=== PATIENT | male | born 1995 | race Caucasian/White ===

== ENCOUNTER 2016-07-27 09:29 | Emergency (ER) | payer OTHER ==
--- NOTE | 2016-07-27 11:24 | UC ---
Martinez aCstillo Salem, scribed for [facility]- [facility] MD on 07/27/16 at 1108 . Back Pain HPI - HPI Summary HPI Summary: HPI: Patient is a 20 y/o male who presents to with back pain since yesterday afternoon (1729). Pt reports he fell on a wood step and landed on lower back. He has been experiencing lower back pain and coccydynia since. He states that he can ambulate, but pain is aggravated with bending forward or with straightening back. He denies any changes with urinating or BM since onset. He also denies tingling in the legs. 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 PMHx: PNA as a child, allergic reaction to PPD shot, torn ACL, and broken fingers. FHx: none. note: VSS, afebrile, post ox:100%, 9/10 low back sacral pain, occasional EtOH, nonsmoker, Hx of asthma, on no prespcription medication. [facility] Ref: [id number] Nurses note: Slipped on wet steps yesterday, fell and landed on lower back and tailbone on the wooden steps. Painful, increased pain with movement. Left hand has been intermittently becoming numb, very rarely the right hand. Has been happening for the last week. - History of Current Complaint Chief Complaint: UCBackPain Stated Complaint: BACK INJURY Time Seen by Provider: 07/27/16 10:48 Hx Obtained From: Patient Onset/Duration: Gradual Onset, Lasting Hours Timing: Constant Severity Initially: Moderate Severity Currently: Moderate Aggravating: Bending - - forward and straightening back. Associated Signs And Symptoms: Negative: Tingling - Allergies/Home Medications Allergies/Adverse Reactions: Allergies Allergy/AdvReac Type Severity Reaction Status Date / Time PPD Allergy Severe SKIN Uncoded 01/25/16 15:24 REACTION Home Medications: Home Medications Ibuprofen TAB* [Advil TAB*] 400 mg PO PRN 07/27/16 [History] PMH/Surg Hx/FS Hx/Imm Hx Endocrine History Of: Denies: Diabetes, Thyroid Disease Cardiovascular History Of: Denies: Cardiac Disorders, Hypertension Respiratory History Of: Reports: Asthma Denies: COPD GI/ History Of: Denies: Ulcer - Surgical History Surgical History: Yes Surgery Procedure, Year, and Place: T&A, PIECE OF SKIN REMOVED FROM UNDER THE TONGUE. - Family History Known Family History: Negative: Cardiac Disease, Hypertension, Diabetes - Social History Alcohol Use: Weekly Alcohol Amount: 1-2 times per week Substance Use Type: None Smoking Status (MU): Never Smoked Tobacco Type: Smokeless Tobacco Amount Used/How Often: 1/2 a tin Review of Systems Constitutional: Negative Musculoskeletal: Other: - No tingling. Numbness in fingers. Neurological: Other - No tingling. All Other Systems Reviewed And Are Negative: Yes Physical Exam Triage Information Reviewed: Yes Appearance: Well-Appearing, No Pain Distress, Well-Nourished Vital Signs: Initial Vital Signs Temp 97.8 F 07/27/16 09:39 Pulse 76 07/27/16 09:39 Resp 18 07/27/16 09:39 BP 122/88 07/27/16 09:39 Pulse Ox 100 07/27/16 09:39 Vital Signs Reviewed: Yes Eyes: Positive: Conjunctiva Clear ENT: Positive: Hearing grossly normal, Pharynx normal, TMs normal. Negative: Muffled/hoarse voice Neck: Positive: Supple, No Lymphadenopathy Respiratory: Positive: Chest non-tender, Lungs clear, Normal breath sounds, No respiratory distress Cardiovascular: Positive: RRR, No Murmur Abdomen Description: Positive: Nontender, No Organomegaly, Soft Bowel Sounds: Positive: Present Musculoskeletal: Positive: Strength Intact, Other: - GUZMAN. TINELS SIGN IN LEFT WRIST. LOWER BACK: MILD TENDERNESS OVER BONES AND MUSCLE REGION. Neurological: Positive: Alert Psychological: Positive: Age Appropriate Behavior Back Pain Course/Dx - Course Course Of Treatment: MDM: Discussed condition with pt, contusion and strain of lower back. Probably carpal tunnel syndrome of the left wrist. We decided not to get an x-ray today. He will recheck with me in 2 days if continued or increased pain. Differential dx: fracture vs strain. - Differential Dx/Diagnosis Provider Diagnoses: Dx: Lumbar strain; left arm carpel tunnel syndrome. Discharge - Discharge Plan Condition: Stable Disposition: HOME Prescriptions: Cyclobenzaprine TAB* [Flexeril TAB*] 10 mg PO BID #10 tab MDD 2 HYDROcodone/ACETAMIN 5-325 MG* [Alleman 5-325 TAB*] 1 tab PO Q6H #7 tab MDD 4 Patient Education Materials: Low Back Strain (ED), Core Strengthening Exercises (GEN), Lower Back Exercises (ED) Forms: *Work Release Referrals: No Primary Care Phys,NOPCP [Primary Care Provider] - Additional Instructions: WE DISCUSSED: WARM MOIST HEAT IN THE MORNING. ICE AFTER WORKING DURING THE DAY. ALTERNATE [id number] TO HELP WITH PAIN. I HAVE GIVEN YOU: FLEXERIL AND VICODIN: TO HELP YOU SLEEP. USE IBUPROFEN DURING THE DAY: UP TO 2 200MG PILLS , 3 TIMES A DAY. I HAVE GIVEN YOU A WORK NOTE UNTIL SUNDAY. RE CHECK AT ANY TIME FOR INCREASED PAIN OR DISABILITY. IT ALSO APPEARS THAT YOU MAY BE DEVELOPING CARPAL TUNNEL SYNDROME IN YOUR LEFT WRIST. FOLLOW UP WITH YOUR DOCTOR NEEDED. THIS MIGHT BE HELPED BY USING A SPLINT. ELEVATE AND ICE AFTER WORK. The documentation as recorded by the Martinez mo Salem accurately reflects the service I personally performed and the decisions made by me, Mak Cruz MD.
== END 2016-07-27 12:00 | disposition home or self-care (01) ==
LOC: UCEAST 09:29
DX: S39.012A Strain of muscle, fascia and tendon of lower back, initial encounter (principal); W10.9XXA Fall (on) (from) unspecified stairs and steps, initial encounter; Y93.9 Activity, unspecified; Y92.9 Unspecified place or not applicable; G56.02 Carpal tunnel syndrome, left upper limb; F17.220 Nicotine dependence, chewing tobacco, uncomplicated
CPT/HCPCS: 99212; G0463

== ENCOUNTER 2018-05-03 18:55 | Emergency (ER) | payer BC, OTHER ==
[2018-05-03 19:15] VITALS: BP 136/90
--- NOTE | 2018-05-03 19:28 | UC ---
Respiratory Complaint HPI - HPI Summary HPI Summary: 22 y/o male presents to the urgent care c/o sore throat, nasal congestion, yellowish nasal discharge, fever, productive cough w/ yellowish phlegm for the past week. Pt has Hx of asthma and pneumonia in the past. he developed wheezing for the past 2 days. Sore throat and body aches is 4/10. Pt has taken Dayquill PO and Tylenol PO to alleviate symptoms. Pt denies SOB, chest pain, abdominal pain, N/V/D. - History of Current Complaint Chief Complaint: UCRespiratory Stated Complaint: COUGH, AND CHEST CONGESTION Time Seen by Provider: 05/03/18 19:25 Hx Obtained From: Patient Onset/Duration: Gradual Onset, Lasting Weeks - 1 week, Still Present, Worse Since - 2 days Timing: Intermittent Episodes Severity Initially: Mild Severity Currently: Moderate Pain Intensity: 4 - sore throat Pain Scale Used: 0-10 Numeric Character: Cough: Productive, Sputum Description: - yellowish Aggravating Factors: Recumbent Position Alleviating Factors: OTC Meds Associated Signs And Symptoms: Positive: Fever, Chills, Wheezing, URI, Nasal Congestion, Sinus Discomfort - Risk Factors Pulmonary Embolism Risk Factors: Negative Cardiac Risk Factors: Negative Pseudomonas Risk Factors: Negative Tuberculosis Risk Factors: Negative - Allergies/Home Medications Allergies/Adverse Reactions: Allergies Allergy/AdvReac Type Severity Reaction Status Date / Time PPD Allergy Severe SKIN Uncoded 05/03/18 19:16 REACTION Home Medications: Home Medications Acetaminophen TAB* [Tylenol TAB*] 975 mg PO Q6H PRN 05/03/18 [History Confirmed 05/03/18] PMH/Surg Hx/FS Hx/Imm Hx Previously Healthy: Yes Respiratory History: Asthma, Pneumonia - Surgical History Surgical History: Yes Surgery Procedure, Year, and Place: T&A, PIECE OF SKIN REMOVED FROM UNDER THE TONGUE. - Family History Known Family History: Positive: None - Pt denies FMHX Negative: Cardiac Disease, Hypertension, Diabetes - Social History Occupation: Employed Full-time Lives: With Family Alcohol Use: Weekly Alcohol Amount: 1-2 times per week Substance Use Type: None Smoking Status (MU): Never Smoked Tobacco Type: Smokeless Tobacco Amount Used/How Often: 1/2 a tin Review of Systems All Other Systems Reviewed And Are Negative: Yes Constitutional: Positive: Fever, Chills, Fatigue Skin: Positive: Negative Eyes: Positive: Negative ENT: Positive: Sore Throat, Nasal Discharge - yellowish, Sinus Congestion, Sinus Pain/Tenderness Respiratory: Positive: Cough - productive, Other - wheezing Cardiovascular: Positive: Negative Gastrointestinal: Positive: Negative Genitourinary: Positive: Negative Motor: Positive: Negative Neurovascular: Positive: Negative Musculoskeletal: Positive: Myalgia Neurological: Positive: Headache Psychological: Positive: Negative Is Patient Immunocompromised?: No Physical Exam - Summary Physical Exam Summary: Vital Signs Reviewed: Yes General: well developed, well nourished male sitting in the examining table w/o any apparent distress Eyes: Positive: Conjunctiva Clear - PERRLA, EOMI, fundi grossly normal ENT: Positive: Normal ENT inspection, Hearing grossly normal, Pharynx normal, Nasal congestion - edematous and erythematous nasal mucosa, Nasal drainage - yellowish drainage, TMs normal. Negative: Tonsillar swelling, Tonsillar exudate Neck: Positive: Supple, Nontender, No Lymphadenopathy Respiratory: no orthopnea or dyspnea. Able to speak in full sentences, no retractions or accessory muscle use, no tripod position, stridor, or head bobbing. Positive breath sounds bilaterally. diffuse scattered wheezing and rhonchi on b/L lungs, no crackles or rales. Cardiovascular: Positive: RRR, No Murmur, Pulses Normal, Brisk Capillary Refill Abdomen Description: Positive: Nontender, No Organomegaly, Soft. Negative: CVA Tenderness (R), CVA Tenderness (L) Bowel Sounds: Positive: Present Musculoskeletal Exam: Normal Musculoskeletal: Positive: Strength Intact, ROM Intact, No Edema Neurological Exam: Normal Psychological Exam: Normal Skin Exam: Normal Triage Information Reviewed: Yes Vital Signs: Initial Vital Signs Temp 100.2 F 05/03/18 19:09 Pulse 77 05/03/18 19:09 Resp 16 05/03/18 19:09 BP 136/90 05/03/18 19:09 Pulse Ox 99 05/03/18 19:09 Diagnostic Evaluation - Laboratory O2 Sat by Pulse Oximetry: 99 Respiratory Course/Dx - Course Course Of Treatment: 22 y/o male presents to the urgent care c/o sore throat, nasal congestion, yellowish nasal discharge, fever, productive cough w/ yellowish phlegm for the past week. Pt has Hx of asthma and pneumonia in the past. he developed wheezing for the past 2 days. Sore throat and body aches is 4 /10. Pt has taken Dayquill PO and Tylenol PO to alleviate symptoms. Pt denies SOB, chest pain, abdominal pain, N/V/D. Hx obtained. Pt w/ scattered wheezes on bilaterally lungs, and rhonchi, good air entry B/L on examination. O2Sat:99 %. Pt given Prednisone PO and albuterol Treatment and Ibuprofen PO to alleviate symptoms. Pt tolerated well treatment and lungs improved,and still mild wheezing on Rt lung. chest X-ray ordered, impression: no active cardiopulmonary disease observed. final radiology resport still pending. Patient prescribed Doxycycline PO PO, Prednisone taper dose, Albuterol inhaler, given aerochamber to alleviate symptoms as directed below. The patient was recommended to increase fluid intake. Take medications as recommended. Pt advised to returned to the clinic or f/u w/ PCP if symptoms do not improve. Pt' s BP is elevated today advised to decrease salt in diet, monitor BP and f/u with PCP for further management. All D/C instructions explained. Patient understood and agree w/ plan of care. Pt left clinic hemodynamically stable , A& OX3 - Differential Dx/Diagnosis Differential Diagnosis/HQI/PQRI: Asthma, Bronchitis, Influenza, Laryngitis, Lower Resp Infection, Sinusitis Provider Diagnosis: Bronchitis, Asthma exacerbation Discharge - Sign-Out/Discharge Documenting (check all that apply): Patient Departure - d/c home All imaging exams completed and their final reports reviewed: No - Discharge Plan Condition: Stable Disposition: HOME Prescriptions: Albuterol HFA INHALER* [Ventolin HFA Inhaler*] 1 - 2 puff INH Q4H PRN #1 mdi PRN Reason: Wheezing DOXYcycline CAP(*) [DOXYcycline 100MG CAP(*)] 100 mg PO BID #20 cap predniSONE TAB* [Deltasone 20 MG TAB*] 20 mg PO DAILY #8 tab Patient Education Materials: Asthma (ED), Acute Bronchitis (ED), Low-Sodium Diet (ED) Referrals: [facility] [place] [facility] [Outside] - 3 Days Additional Instructions: 1- Take Prednisone PO taper dose as directed starting tomorrow. First loading dose given today. take full course of antibiotic to alleviate symptoms 2-Use Albuterol inhaler w/ the spacer to alleviate SOB, and wheezing as directed . Increase fluid intake, rest and eat well. 3- If symptoms do not improve or worsen or your develop SOB with fever and severe wheezing please go immediately to the ER further evaluation and treatment. 4- F/u with your PCP in 2-3 days for further management on your Asthma 5- Your BP is elevated today. please decrease salt in your diet, monitor BP and if it continues to be elevated please f/u with your PCP for further management - Billing Disposition and Condition Condition: STABLE Disposition: Home - Attestation Statements Provider Attestation: I was available for consult. This patient was seen by the FERNANDO. The patient was not presented to, seen by, or examined by me. -César
[2018-05-03] MEDS ORDERED: Albuterol/Ipratropium NEB.SOL* Albuterol 2.5 MG/Ipratropium 0.5 MG 3 ML INH ONE (19:35)
[2018-05-03] MEDS ORDERED: predniSONE TAB* 20 MG PO ONE (19:35)
[2018-05-03] MEDS ORDERED: Ibuprofen TAB* 400 MG PO ONE (19:36)
[2018-05-03] MEDS ORDERED: Albuterol 2.5 MG/3 ML NEB.SOL* (0.083%) INH ONE (19:56)
== END 2018-05-03 20:45 | disposition home or self-care (01) ==
LOC: UCEAST 18:55
DX: J45.901 Unspecified asthma with (acute) exacerbation (principal); J40 Bronchitis, not specified as acute or chronic; J02.9 Acute pharyngitis, unspecified; Z88.8 Allergy status to other drugs, medicaments and biological substances
CPT/HCPCS: 71046; 87651; 99213; A9270-GY; G0463; J7512

== ENCOUNTER 2018-06-28 14:13 | Emergency (ER) | payer BC ==
[2018-06-28 14:26] VITALS: BP 138/91
--- NOTE | 2018-06-28 14:45 | UC ---
Respiratory Complaint HPI - HPI Summary HPI Summary: 22 year old male comes in with a chief complaint of 2-3 weeks of cough chest congestion and runny nose wheezing sputum production. His sputum is yellow. No recent fevers. Does not feel short of breath. Discussed cough it's really annoying. His chest [id number] medications which have not really helped with the cough. Albuterol does help with the cough. - History of Current Complaint Chief Complaint: UCRespiratory Stated Complaint: CHEST /HEAD PAIN DUE TO COUGHING Time Seen by Provider: 06/28/18 14:36 Pain Intensity: 8 - Allergies/Home Medications Allergies/Adverse Reactions: Allergies Allergy/AdvReac Type Severity Reaction Status Date / Time PPD Allergy Severe SKIN Uncoded 06/28/18 14:26 REACTION PMH/Surg Hx/FS Hx/Imm Hx Previously Healthy: Yes Respiratory History: Asthma - Surgical History Surgical History: Yes Surgery Procedure, Year, and Place: T&A, PIECE OF SKIN REMOVED FROM UNDER THE TONGUE. - Family History Known Family History: Positive: None - Pt denies FMHX Negative: Cardiac Disease, Hypertension, Diabetes - Social History Alcohol Use: Weekly Alcohol Amount: 1-2 times per week Substance Use Type: None Smoking Status (MU): Never Smoked Tobacco Type: Smokeless Tobacco Amount Used/How Often: 1/2 a tin Review of Systems All Other Systems Reviewed And Are Negative: Yes Constitutional: Positive: Negative Skin: Positive: Negative Eyes: Positive: Negative ENT: Positive: Sore Throat, Nasal Discharge, Sinus Congestion Respiratory: Positive: Cough, Other - wheezing Cardiovascular: Positive: Negative Gastrointestinal: Positive: Negative Neurovascular: Positive: Negative Musculoskeletal: Positive: Negative Neurological: Positive: Negative Psychological: Positive: Negative Is Patient Immunocompromised?: No Physical Exam Triage Information Reviewed: Yes Appearance: No Pain Distress, Well-Nourished, Ill-Appearing - mild Vital Signs: Initial Vital Signs Temp 98.5 F 06/28/18 14:22 Pulse 81 06/28/18 14:22 Resp 18 06/28/18 14:22 BP 138/91 06/28/18 14:22 Pulse Ox 100 06/28/18 14:22 Vital Signs Reviewed: Yes Eye Exam: Normal Eyes: Positive: Conjunctiva Clear ENT: Positive: Pharynx normal, Nasal congestion, Nasal drainage, TMs normal Neck exam: Normal Neck: Positive: Supple Respiratory: Positive: Lungs clear, Normal breath sounds, No respiratory distress Cardiovascular Exam: Normal Cardiovascular: Positive: RRR Musculoskeletal Exam: Normal Musculoskeletal: Positive: Strength Intact, ROM Intact Neurological Exam: Normal Neurological: Positive: Alert, Muscle Tone Normal Psychological Exam: Normal Psychological: Positive: Age Appropriate Behavior Skin Exam: Normal UC Diagnostic Evaluation - Laboratory O2 Sat by Pulse Oximetry: 100 Respiratory Course/Dx - Course Course Of Treatment: Patient was here in early April for very similar complaints. He was treated with prednisone doxycycline and albuterol at that time. That didn't make his symptoms go away. This time we'll switch it up a little bit and given a Z-Eddie and also Tessalon Perles. For refills on the Z- Eddie and prednisone to be used if needed. Patient to follow-up his primary care doctor reevaluate sooner if worse or any questions or concerns. - Differential Dx/Diagnosis Provider Diagnosis: Bronchitis with bronchospasm Discharge - Sign-Out/Discharge Documenting (check all that apply): Patient Departure All imaging exams completed and their final reports reviewed: No Studies - Discharge Plan Condition: Stable Disposition: HOME Prescriptions: Azithromyxin EDDIE (NF) [Z-Eddie (Zithromax) 250 mg tabs #6] 2 tab PO .TODAY, THEN 1 DAILY #6 tab Benzonatate CAP* [Tessalon 100 MG CAP*] 100 mg PO TID PRN #20 cap PRN Reason: Cough predniSONE TAB* [Deltasone 20 MG TAB*] 40 mg PO DAILY #10 tab Patient Education Materials: Acute Bronchitis (ED), Bronchospasm (ED) Referrals: [facility] [place] [facility] [Outside] Additional Instructions: FOLLOW UP WITH YOUR DOCTOR IF NOT COMPLETELY IMPROVED. GET RECHECKED FOR ANY WORSENING OF YOUR CONDITION OR QUESTIONS OR CONCERNS. - Billing Disposition and Condition Condition: STABLE Disposition: Home
== END 2018-06-28 14:50 | disposition home or self-care (01) ==
LOC: UCEAST 14:13
DX: J45.909 Unspecified asthma, uncomplicated (principal); Z91.09 Other allergy status, other than to drugs and biological substances
CPT/HCPCS: 99212; G0463

== ENCOUNTER 2019-03-09 16:54 | Emergency (ER) | payer BC, OTHER ==
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
[2019-03-09 19:31] VITALS: BP 140/91
== END 2019-03-09 19:24 | disposition home or self-care (01) ==
LOC: ED 16:54
DX: S09.90XA Unspecified injury of head, initial encounter (principal); W50.0XXA Accidental hit or strike by another person, initial encounter; Y92.9 Unspecified place or not applicable
CPT/HCPCS: 99282

== ENCOUNTER 2019-05-21 23:11 | Emergency (ER) | payer SELFPAY ==
--- NOTE | 2019-05-22 00:25 | ED ---
Lower Extremity - HPI Summary HPI Summary: 23 year male presents with right knee injury today. He states that he was trying to restrain a person and ended up twisting his knee and the person ended up landed on his knee. He has pain over the medial and lateral aspect of the knee. Has history of meniscal injury to the knee. He states the knee feels better when is straight. No numbness or tingling. States it does feel like his knee is give out. He has no medical conditions. - History of Current Complaint Chief Complaint: EDExtremityLower Stated Complaint: R KNEE PAIN PER PT Time Seen by Provider: 05/22/19 00:09 Pain Intensity: 7 - Allergies/Home Medications Allergies/Adverse Reactions: Allergies Allergy/AdvReac Type Severity Reaction Status Date / Time PPD Allergy Severe SKIN Uncoded 05/21/19 23:17 REACTION Home Medications: Home Medications NK [No Home Medications Reported] 05/21/19 [History Confirmed 05/21/19] PMH/Surg Hx/FS Hx/Imm Hx Endocrine/Hematology History: Denies: Hx Diabetes, Hx Thyroid Disease Cardiovascular History: Denies: Hx Hypertension Respiratory History: Reports: Hx Asthma Denies: Hx Chronic Obstructive Pulmonary Disease (COPD) GI History: Denies: Hx Ulcer - Surgical History Surgery Procedure, Year, and Place: T&A, PIECE OF SKIN REMOVED FROM UNDER THE TONGUE. Infectious Disease History: No Infectious Disease History: Denies: Hx Clostridium Difficile, Hx Hepatitis, Hx Human Immunodeficiency Virus (HIV), Hx of Known/Suspected MRSA, Hx Shingles, Hx Tuberculosis, Hx Known/ Suspected VRE, Hx Known/Suspected VRSA, History Other Infectious Disease, Traveled Outside the [place] in Last 30 Days - Family History Known Family History: Positive: None - Pt denies FMHX Negative: Cardiac Disease, Hypertension, Diabetes - Social History Alcohol Use: Weekly Alcohol Amount: 1-2 times per week Substance Use Type: Reports: None Hx Tobacco Use: No Smoking Status (MU): Never Smoked Tobacco Type: Smokeless Tobacco Amount Used/How Often: 1/2 a tin Review of Systems Negative: Fever Negative: Chest Pain Negative: Shortness Of Breath Positive: Myalgia - right knee pain All Other Systems Reviewed And Are Negative: Yes Physical Exam Triage Information Reviewed: Yes Vital Signs On Initial Exam: Initial Vitals Temp Pulse Resp BP Pulse Ox 97.6 F 87 16 151/95 99 05/21/19 23:13 05/21/19 23:13 05/21/19 23:13 05/21/19 23:13 05/21/19 23:13 Vital Signs Reviewed: Yes Appearance: Positive: Well-Appearing Skin: Positive: Warm, Dry Head/Face: Positive: Normal Head/Face Inspection Eyes: Positive: Normal, Conjunctiva Clear ENT: Positive: Pharynx normal Respiratory/Lung Sounds: Positive: Clear to Auscultation, Breath Sounds Present Cardiovascular: Positive: Normal, RRR Musculoskeletal: Positive: Strength/ROM Intact - right knee with pain, Other - tenderness over lateral and medial aspect of right knee, nontender patella, good pulses, laxity noted medial to joint Neurological: Positive: Normal Psychiatric: Positive: Normal Procedures - Sedation Patient Received Moderate/Deep Sedation with Procedure: No Diagnostics - Vital Signs Vital Signs Temp Pulse Resp BP Pulse Ox 05/21/19 23:13 97.6 F 87 16 151/95 99 - Laboratory Lab Statement: Any lab studies that have been ordered have been reviewed, and results considered in the medical decision making process. - Radiology knee Radiology Interpretation Completed By: ED Physician Summary of Radiographic Findings: no fracture Lower Extremity Course/Dx - Course Course Of Treatment: 23 year male presents with right knee injury today. He states that he was trying to restrain a person and ended up twisting his knee and the person ended up landed on his knee. He has pain over the medial and lateral aspect of the knee. Has history of meniscal injury to the knee. He states the knee feels better when is straight. No numbness or tingling. States it does feel like his knee is give out. He has no medical conditions. On exam tenderness the medial and lateral aspect of the knee. Nontender patella. X-rays are normal. Neurovascular intact. gave knee immobilizer. told follow-up with orthopedic. Patient understands and agrees the plan. - Diagnoses Differential Diagnosis/HQI/PQRI: Positive: Fracture (Closed), Sprain, Strain Provider Diagnoses: Right knee pain Discharge ED - Sign-Out/Discharge Documenting (check all that apply): Patient Departure - Discharge Plan Condition: Good Disposition: HOME Patient Education Materials: Knee Pain (ED) Referrals: Leela Carlos MD [Medical Doctor] - Additional Instructions: Use immobilizer as needed Ice, elevate, Ibuprofen or Tylenol every 6 hours for pain Follow up with ortho Return to ED if develop or any new or worsening symptoms - Billing Disposition and Condition Condition: GOOD Disposition: Home
[2019-05-22 00:58] VITALS: BP 185/84
== END 2019-05-22 00:50 | disposition home or self-care (01) ==
LOC: ED 23:11
DX: M25.561 Pain in right knee (principal); Z87.891 Personal history of nicotine dependence; Z88.7 Allergy status to serum and vaccine
CPT/HCPCS: 99282

== ENCOUNTER 2019-09-10 11:36 | Emergency (ER) | payer BC, OTHER ==
[2019-09-10 12:03] VITALS: BP 137/86
--- NOTE | 2019-09-10 14:44 | UC ---
Hand/Wrist HPI - HPI Summary HPI Summary: Patient is a 23yo male presenting with right dorsal wrist pain x2 days. Patient states he first noticed the pain a few hours after chopping wood. Denies any known blunt trauma or injury to the wrist. Notes some dorsal swelling and decreased extension of wrist d/t pain. Denies bruising. Denies numbness and tingling. Denies radiating pain. States he took ibuprofen this morning with minimal relief. Pain also relieved with rest. Has continued to perform heavy lifting of wood through yesterday and this morning at work. - History Of Current Complaint Chief Complaint: UCUpperExtremity Stated Complaint: WRIST INJURY Hx Obtained From: Patient Pain Intensity: 8 Pain Scale Used: 0-10 Numeric - Allergies/Home Medications Allergies/Adverse Reactions: Allergies Allergy/AdvReac Type Severity Reaction Status Date / Time PPD Allergy Severe SKIN Uncoded 09/10/19 11:56 REACTION Home Medications: Home Medications Ibuprofen TAB* [Advil TAB*] 600 mg PO PRN 09/10/19 [History] PMH/Surg Hx/FS Hx/Imm Hx Previously Healthy: Yes - Surgical History Surgical History: Yes Surgery Procedure, Year, and Place: T&A, PIECE OF SKIN REMOVED FROM UNDER THE TONGUE. - Family History Known Family History: Positive: None - Pt denies FMHX Negative: Cardiac Disease, Hypertension, Diabetes - Social History Alcohol Use: Occasionally Alcohol Amount: 1-2 times per week Substance Use Type: None Smoking Status (MU): Never Smoked Tobacco Type: Smokeless Tobacco Amount Used/How Often: 1/2 a tin Review of Systems All Other Systems Reviewed And Are Negative: No Constitutional: Positive: Negative Skin: Positive: Negative Respiratory: Positive: Negative Cardiovascular: Positive: Negative Neurovascular: Positive: Negative Musculoskeletal: Positive: Arthralgia - right wrist, Decreased ROM - right wrist extension, Edema - right wrist Neurological/Mental Status: Positive: Negative. Negative: Weakness, Paresthesia , Numbness Physical Exam - Summary Physical Exam Summary: Vital Signs Reviewed: Yes A+Ox3, no distress Eyes: Conjunctiva Clear ENT: Hearing grossly normal neck: supple Respiratory: Positive: No respiratory distress, No accessory muscle use Cardiovascular: skin color reflects adequate perfusion, strong radial pulses b/l Musculoskeletal Exam: GUZMAN x 4 without difficulty, minimal TTP of dorsal aspect R wrist, mild dorsal swelling R wrist without erythema or ecchymosis, decreased ROM wrist extension d/t pain, strength and sensation grossly intact Neurological: Positive: Alert, ambulatory without difficulty Psychological: Positive: age appropriate behavior Skin: Positive: no rash, no ecchymosis Vital Signs: Initial Vital Signs Temp 99.4 F 09/10/19 11:54 Pulse 91 09/10/19 11:54 Resp 16 09/10/19 11:54 BP 137/86 09/10/19 11:54 Pulse Ox 100 09/10/19 11:54 Hand/Wrist Course/Dx - Course Course Of Treatment: Radiographs of right wrist unremarkable today. I instructed patient to continue with symptomatic treatment and provided him with lele wrap and cock up splint. Instructed to refrain from strenuous activity until pain fully resolves and to follow up with ortho if no improvement within 2 weeks. Patient voiced understanding and agreed with treatment plan. - Differential Dx/Diagnosis Differential Diagnosis/HQI/PQRI: Sprain, Strain, Tendonitis Provider Diagnosis: Strain of wrist, right Discharge ED - Sign-Out/Discharge Documenting (check all that apply): Patient Departure All imaging exams completed and their final reports reviewed: No Studies - Discharge Plan Condition: Stable Disposition: HOME Patient Education Materials: Muscle Strain (ED), Wrist Injury (ED) Referrals: Karthik Santos MD [Primary Care Provider] - Joanne Solo MD [Medical Doctor] - If Needed Additional Instructions: As discussed, the xrays of the wrist did not show any abnormalities. Rest, ice, elevate, and use the lele wrap and/or wrist splint to help relieve pain. Continue with ibuprofen as directed for pain relief. Refrain from strenuous physical activity until pain and swelling have fully resolved. Follow up with orthopedics listed below if pain does not improve within 2 weeks. - Billing Disposition and Condition Condition: STABLE Disposition: Home
== END 2019-09-10 12:54 | disposition home or self-care (01) ==
LOC: UCEAST 11:36
DX: S66.911A Strain of unspecified muscle, fascia and tendon at wrist and hand level, right hand, initial encounter (principal); X50.3XXA Overexertion from repetitive movements, initial encounter; Y93.89 Activity, other specified; Y92.9 Unspecified place or not applicable; Z88.7 Allergy status to serum and vaccine
CPT/HCPCS: 99213; G0463